=== PATIENT | female | born 1965 | race Two or more races ===

== ENCOUNTER 2016-09-30 22:24 | Emergency (ER) | payer OTHER ==
[2016-09-30 22:31] VITALS: BP 157/110; PULSE 122; TEMP 98.5; BMI 24.1
--- NOTE | 2016-09-30 23:47 | PDOC ---
History of Present Illness - General History Source: Patient Exam Limitations: No Limitations - History of Present Illness Initial Comments: 09/30/16 23:54 The patient is a 51 year old female with a pertinent PMH of HTN who presents to the ED syncopal episode while in the bathroom having a bowel movement. The patient states she hadnt been feeling well today. She complains of back pain and believes she may have hurt her back in the fall despite her chronic back pain.The patient is unsure of taking her medications today. The patient reports she hasnt eaten today. The patient denies recent travel. Denies: fever, chills, nausea, vomiting, diarrhea, shortness of breath and chest pain Allergies: Penicillins PCP: Dr. Prudence Perry <Pearl Sheldon - Last Filed: 10/01/16 03:04> - General History Source: Patient <JadonRogelio william - Last Filed: 10/01/16 03:27> - General Chief Complaint: Syncope/Near Syncope Stated Complaint: WEAKNESS Time Seen by Provider: 09/30/16 23:40 Past History <Pearl Sheldon - Last Filed: 10/01/16 03:04> - Past Medical History HTN: Yes Other medical history: migraine, memory loss - Psycho/Social/Smoking Cessation Hx Suicidal Ideation: No Smoking Status: Yes Smoking History: Never smoked Years of Tobacco Use: 20 Number of Cigarettes Smoked Daily: 0 Information on smoking cessation initiated: No Hx Alcohol Use: No Drug/Substance Use Hx: No <Rogelio Hand - Last Filed: 10/01/16 03:27> - Past Medical History Allergies/Adverse Reactions: Allergies Allergy/AdvReac Type Severity Reaction Status Date / Time Penicillins Allergy Intermediate Rash Verified 09/30/16 22:27 Home Medications: Ambulatory Orders Propranolol HCl [Inderal] 40 mg PO ONCE 09/30/16 Review of Systems - Review of Systems Able to Perform ROS?: Yes Comments:: 09/30/16 23:54 CONSTITUTIONAL: +Generalized weakness. Absent: fever, no chills EYES: Absent: visual changes ENT: Absent: ear pain, no sore throat CARDIOVASCULAR: +Syncope. Absent: chest pain, no palpitations RESPIRATORY: Absent: cough, no SOB GI: Absent: abdominal pain, no nausea, no vomiting, no constipation, no diarrhea GENITOURINARY: Absent: dysuria, no frequency, no hematuria MUSKULOSKELETAL: +Back pain. Absent: no arthralgia, no myalgia SKIN: Absent: rash NEURO: Absent: headache <Pearl Sheldon - Last Filed: 10/01/16 03:04> *Physical Exam - Vital Signs Last Vital Signs Temp Pulse Resp BP Pulse Ox 98.5 F 122 H 14 157/110 99 09/30/16 22:28 09/30/16 22:28 09/30/16 22:28 09/30/16 22:28 09/30/16 22:28 - Physical Exam Comments: 09/30/16 23:55 GENERAL: Well-appearing, well-nourished. mild distress. HEENT: Normocephalic, atraumatic. PERRL, EOM intact. CARDIOVASCULAR: Normal S1, S2. Regular rate and rhythm. PULMONARY: Clear to auscultation bilaterally. ABDOMEN: Soft, non-distended, non-tender. MUSCULOSKELETAL: Bilateral paraspinal tenderness. EXTREMITIES: Normal ROM in all four extremities. No gross deformities. SKIN: Warm, dry. No rash NEUROLOGICAL: No focal neurological deficits. <Pearl Sheldon - Last Filed: 10/01/16 03:04> - Vital Signs Last Vital Signs Temp Pulse Resp BP Pulse Ox 98.5 F 122 H 14 157/110 99 09/30/16 22:28 09/30/16 22:28 09/30/16 22:28 09/30/16 22:28 09/30/16 22:28 <Rogelio Hand - Last Filed: 10/01/16 03:27> ED Treatment Course - LABORATORY CBC & Chemistry Diagram: 10/01/16 00:53 10/01/16 00:53 - RADIOLOGY Radiograph Interpretation: 10/01/16 03:04 EXAM: CT brain without contrast Reviewed by imaging environmental sustainability manager FINDINGS: Normal brain. No acute intracranial abnormality. No bleed. No visible infarct or mass. Osseous structures are intact <Pearl Sheldon - Last Filed: 10/01/16 03:04> - LABORATORY CBC & Chemistry Diagram: 10/01/16 00:53 10/01/16 02:10 <Rogelio Hand - Last Filed: 10/01/16 03:27> Medical Decision Making - Medical Decision Making 10/01/16 03:15 Dr. Hand: The scribe's documentation has been prepared under my direction and personally reviewed by me in its entirery. I confirm that the note above accurately reflects all work, treatment, procedures, and medical decision making performed by me. <Rogelio Hand - Last Filed: 10/01/16 03:27> *DC/Admit/Observation/Transfer - Attestations Scribe Attestion: 09/30/16 23:55 Documentation prepared by Pearl Sheldon, acting as medical customer service representative for Rogelio Hand MD/DO. <Pearl Sheldon - Last Filed: 10/01/16 03:04> - Discharge Dispostion Admit: No <Rogelio Hand - Last Filed: 10/01/16 03:27> Diagnosis at time of Disposition: Fainting Qualifiers: Encounter type: initial encounter - Discharge Dispostion Disposition: HOME Condition at time of disposition: Stable - Referrals Referrals: Prudence Perry MD [Primary Care Provider] - - Patient Instructions Printed Discharge Instructions: DI for Syncope in Adults (Fainting) Additional Instructions: please follow up with her primary care physician if her symptoms continue.
[2016-09-30] MEDS ORDERED: SODIUM CHLORIDE 1,000 ML IV STA (23:48)
[2016-10-01 01:30] LABS: URINE APPEARANCE CLEAR; URINE BILIRUBIN NEGATIVE (NEGATIVE); URINE BLOOD NEGATIVE (NEGATIVE); URINE COLOR LTYELLOW; URINE GLUCOSE (UA) NEGATIVE (NEGATIVE); URINE KETONE NEGATIVE (NEGATIVE); URINE NITRITE NEGATIVE (NEGATIVE); URINE PROTEIN NEGATIVE (NEGATIVE); URINE UROBILINOGEN NEGATIVE E.U./dl (0.2-1.0)
[2016-10-01 01:33] LABS: URINE LEUK ESTERASE TRACE (NEGATIVE)
[2016-10-01 01:34] LABS: URINE BACTERIA RARE /hpf (NONE SEEN); URINE HYALINE CAST 1 /lpf; URINE MUCUS RARE; URINE RBC 2 /hpf (0-3); URINE WBC 3 /hpf (3-5)
[2016-10-01 01:39] LABS: BASOPHIL 0.6 % (0-2.0); EOSINOPHIL 0.9 % (0-4.5); MCH 30.3 pg (25.7-33.7); MCHC 32.5 g/dl (32.0-36.0); MEAN CELL VOLUME 93.4 fl (80-96); MEAN PLT VOLUME 7.7 fl (7.5-11.1); NEUTROPHILS 63.5 % (42.8-82.8); PLATELET COUNT 452 K/MM3 (134-434); RDW 12.3 % (11.6-15.6); WHITE BLOOD COUNT 12.1 K/mm3 (4.0-10.0)
[2016-10-01 01:53] LABS: INR 1.14 (0.82-1.09); PROTHROMBIN TIME (PATIENT) 12.6 SEC (9.98-11.88)
[2016-10-01 03:03] LABS: ALBUMIN 3.4 g/dl (3.4-5.0); ANION GAP 6 (8-16); BILIRUBIN,TOTAL 0.4 mg/dL (0.2-1.0); CO2 33 mmol/L (21-32); CREATININE 0.7 mg/dL (0.55-1.02); GLUCOSE,RANDOM 99 mg/dL (74-106); SGOT/AST 12 U/L (15-37); SGPT/ALT 15 U/L (12-78); TOT PROT 6.8 g/dl (6.4-8.2)
[2016-10-01 03:05] LABS: ALK PHOS 77 U/L (45-117); TROPONIN I < 0.02 ng/ml (0.00-0.05)
--- NOTE | 2016-10-02 10:29 | EKG ---
Test Reason : Blood Pressure : / mmHG Vent. Rate : 101 BPM Atrial Rate : 101 BPM P-R Int : 194 ms QRS Dur : 074 ms QT Int : 348 ms P-R-T Axes : 070 -03 040 degrees QTc Int : 451 ms POOR DATA QUALITY, INTERPRETATION MAY BE ADVERSELY AFFECTED SINUS TACHYCARDIA SEPTAL INFARCT (CITED ON OR BEFORE 23-DEC-2011) ABNORMAL ECG WHEN COMPARED WITH ECG OF 23-DEC-2011 15:39, NO SIGNIFICANT CHANGE WAS FOUND Confirmed by ADDIE RAMSEY MD ([id number]) on 10/02/2016 10:28:55 AM Referred By: Confirmed By:ADDIE RAMSEY MD
== END 2016-10-01 03:32 | disposition home or self-care (01) ==
LOC: JER 22:24
PROC: 3E0337Z Introduction of Electrolytic and Water Balance Substance into Peripheral Vein, Percutaneous Approach (ICD-10-PCS; principal; 2016-09-30)
DX: R55 Syncope and collapse (principal); I10 Essential (primary) hypertension
CPT/HCPCS: 36415; 70450-TC; 71010-TC; 80053; 81003; 81015; 82550; 84484; 84703; 85025; 85610; 93005; 93010; 99283-25

== ENCOUNTER 2017-05-06 11:36 | Day surgery (SDC) | payer OTHER ==
[2017-05-05 10:44] VITALS: BMI 24.3
[2017-05-06] MEDS ORDERED: ACETAMINOPHEN/CAFFEINE/BUTALBITAL 1 TAB PO PRN (11:39)
[2017-05-06] MEDS ORDERED: PROPRANOLOL HCL 40 MG TABLET PO ONE (11:45)
--- NOTE | 2017-05-06 11:52 | OP ---
Operative Note - Note: Operative Date: 05/06/17 Pre-Operative Diagnosis: intractable urinanry incontince Operation: transvaginal urethropexy, tot, Post-Operative Diagnosis: Same as Pre-op Surgeon: Johnathan Black Anesthesia: General Drains & Tubes with Location: cardoso to lb Operative Report Dictated: Yes
[2017-05-06] MEDS ORDERED: VASOPRESSIN 20 UNITS/ML VIAL IV ONE (14:07)
[2017-05-06] MEDS ORDERED: PROPOFOL 20 ML ONE (16:19)
[2017-05-06] MEDS ORDERED: MIDAZOLAM HCL 2 MG/2 ML SINGLE DOSE VIAL ONE (16:19)
[2017-05-06] MEDS ORDERED: DEXAMETHASONE SOD PHOSPHATE 4 MG/1 ML VIAL ONE (16:40)
[2017-05-06] MEDS ORDERED: ceFAZolin SODIUM 1 GM VIAL ONE (16:40)
[2017-05-06] MEDS ORDERED: ONDANSETRON 4 MG/2 ML VIAL ONE (16:40)
[2017-05-06] MEDS ORDERED: ceFAZolin SODIUM 1 GM VIAL IVPB ONE (16:48)
[2017-05-06] MEDS ORDERED: KETOROLAC TROMETHAMINE 30 MG/1 ML VIAL ONE (16:56)
[2017-05-06] MEDS ORDERED: LIDOCAINE 1%/EPI 1:100000 (50 ML MULTI DOSE VIAL) INF ONE (16:56)
[2017-05-06] MEDS ORDERED: BACITRACIN 15 GM TUBE TOPICAL OINTMENT ONE (17:46)
[2017-05-06] MEDS ORDERED: PROMETHAZINE HCL 25 MG/1 ML VIAL IVPUSH PRN (18:11)
[2017-05-06] MEDS ORDERED: LACTATED RINGERS SOLUTION 1,000 ML IV SCH (18:15)
[2017-05-06] MEDS: HYDROmorphone HCL CARPU-JECT 2 MG/1 ML DISP.SYRIN IM PRN (21:13)
[2017-05-06] MEDS: oxyCODONE HCL 5 MG TABLET PO PRN (23:20)
[2017-05-07] MEDS: oxyCODONE HCL 5 MG TABLET PO PRN ×2 (02:57→08:05)
[2017-05-07] MEDS: ACETAMINOPHEN 325 MG TABLET (FP) PO PRN ×2 (02:58→08:05)
[2017-05-07] MEDS: HYDROmorphone HCL CARPU-JECT 2 MG/1 ML DISP.SYRIN IM PRN (04:20)
[2017-05-07] MEDS ORDERED: LEVOFLOXACIN 500 MG TABLET (FP) PO SCH (07:00)
--- NOTE | 2017-05-07 08:22 | HP ---
DATE OF ADMISSION: 05/06/2017 Patient is a 51-year-old female who underwent transvaginal taping in January 2017. Recently, she has been diagnosed with vaginal perforation, i.e. erosion of the vaginal sling. She also complains of stress urinary incontinence. She does use 2-3 pads a day. She also has a history of migraine headaches. She has history of arthralgia. She is allergic to PENICILLIN and CODEINE. She states that when she coughs or sneezes, she loses urine. She denies dysuria or frequency. She denies any urgency incontinence. She denies any past medical problems. The patient is a G2, P2, status post uterine ablation 2 years ago. She has also undergone right carpal tunnel surgery of the hand. She underwent right inguinal hernia repair, also. Her last Pap smear was last year. SOCIAL HISTORY: Patient does smoke 1 pack of cigarettes a day since the age of 15. She denies alcohol or illicit drug use. FAMILY HISTORY: There is a family history of hypertension and diabetes. PHYSICAL EXAMINATION: General: Presently, the patient is alert, oriented. Chest: Clear. Abdomen: Soft. No CVA tenderness is elicited. Pelvic: Exam revealed mild atrophic vaginitis. No evidence of cystocele or rectocele. On palpation, the transvaginal tape is palpable in the mid-urethra. Meatus appears to be adequate. The patient underwent a cystoscopy which revealed squamous metaplasia. Ureteral orifices were within normal limits with efflux of clear urine. IMPRESSION AT PRESENT: Stress urinary incontinence status post transvaginal taping which has failed. Presently, there is slight erosion of the tape. PLAN: Excision of old taping and performing a transobturator taping. This was explained fully to the patient. Possible side effects including hemorrhage, perforation, or infection were explained to the patient, and she agrees. Flores [id number]
--- NOTE | 2017-05-07 09:41 | OP ---
DATE OF OPERATION: 05/06/2017 PREOPERATIVE DIAGNOSIS: Stress urinary incontinence, vaginal sling erosion at vaginal roof. OPERATIVE PROCEDURE: Exploration of vaginal roof, removal of exposed sling and scar tissue, and placement of a second transobturator sling. SURGEON: Denis Brooks MD ANESTHESIA: General. DESCRIPTION OF PROCEDURE: Under the above-stated anesthesia, the patient was prepped and draped in the usual sterile manner. She was placed in the dorsal lithotomy position. A weighted vaginal speculum was placed on the floor of the vagina. Stay sutures were placed on the right and left labia majora. A 16-Vietnamese Felipe was left in the urethra and the bladder drained. Inspection of the roof of the vagina revealed a 1-cm area where the vaginal sling was visible. The area was infiltrated with lidocaine with epinephrine for hemostatic purposes. A midline vertical incision was made from the mid-urethra to the level of the bladder neck. This was carried down through the skin and subcutaneous tissue using both blunt and sharp dissection. The entire sling that was in the vaginal area and surrounding tissue was removed. The scar tissue was also removed with sharp dissection. Palpation of the area revealed no other tissue. Therefore, the endopelvic fascia was palpated on the right and left sides of the vesicourethral angle. Transobturator needles were placed via the obturator canal and brought out the ipsilateral side of the urethrovesical angle. The Coloplast tape was grasped and brought out the ipsilateral side of the obturator canal. The tape was placed below the urethra in a non-tension fashion. The base of the tape was cut at the level of the skin. The wound was irrigated. The incision in the vagina was closed with running 3-0 Vicryl suture ligatures. Cystoscopy was performed and this revealed no invasion by the needle and/or tape. The ureteral orifices were within normal limits, with efflux of clear urine. No lesions or calculi were seen. The Felipe was then reinserted. The vaginal vault was irrigated with antibiotic solution. Then the area was packed with 1-inch Iodoform soaked in Betadine. The Felipe was connected to a leg bag. The stab incisions were closed with girma. The patient tolerated the procedure well. She returned to the recovery room in good condition. DENIS BROOKS M.D. [id number]
[2017-05-07 11:23] VITALS: BP 129/81; PULSE 65; TEMP 97.8
--- NOTE | 2017-05-10 16:05 | PATH ---
Surgical Pathology Report Patient Name: PRAMOD RUIZ [facility]. Rec. #: [id number] /Age/Gender: 1965 (Age: 51) / F Account: [id number] Location: [facility] SURGICAL Taken: 05/06/2017 Received: 05/09/2017 Reported: 05/10/2017 Physicians: Johnathan Black M.D. Specimen(s) Received MESH AND SCAR TISSUE Clinical History Stress female incontinence Final Diagnosis MESH AND SCAR TISSUE, EXCISION: SKIN WITH DERMAL SCAR. MESH (GROSS EXAM). Electronically Signed Mick Edgar M.D. Gross Description Received in formalin labeled "mesh and scar tissue" are 2 hart, irregular portions of mesh material measuring 1.6 x 1.0 x 0.1 cm and 1.8 x 1.0 x 0.1 cm. Also received within the same container is a 2.0 x 1.0 x 0.8 cm hart, irregular, unoriented portion of soft tissue. The soft tissue is serially sectioned and abrasives sales representative sections are submitted in one cassette. 05/09/2017 [facility]05/09/2017
== END 2017-05-07 11:18 | disposition home or self-care (01) ==
LOC: JASU-SURG 11:36 → J6S 20:21 → JASU-SURG 05-07 11:18
PROVIDERS: ATTEND Urology
PROC: 0TSC0ZZ Reposition Bladder Neck, Open Approach (ICD-10-PCS; principal; 2017-05-06 12:30)
DX: N39.3 Stress incontinence (female) (male) (principal); T83.711A Erosion of implanted vaginal mesh to surrounding organ or tissue, initial encounter; Y83.8 Other surgical procedures as the cause of abnormal reaction of the patient, or of later complication, without mention of misadventure at the time of the procedure; Y92.9 Unspecified place or not applicable
CPT/HCPCS: 84703; 88304-TC; 94760

== ENCOUNTER 2018-11-24 17:07 | Emergency (ER) | payer OTHER ==
--- NOTE | 2018-11-24 17:13 | PDOC ---
Rapid Medical Evaluation Time Seen by Provider: 11/24/18 17:12 Medical Evaluation: Allergies Allergy/AdvReac Type Severity Reaction Status Date / Time Penicillins Allergy Intermediate Rash Verified 05/06/17 14:27 codeine Allergy "ITCHING" Verified 05/06/17 14:27 11/24/18 17:12 I have performed a brief in-person evaluation of this patient. The patient presents with a chief complaint of:L ear FB Pertinent physical exam findings:deffered to FT I have ordered the following:nothing The patient will proceed to the ED for further evaluation. Discharge Disposition - Diagnosis Foreign body in ear - Referrals - Patient Instructions - Post Discharge Activity
[2018-11-24 17:16] VITALS: BP 122/82; PULSE 106; TEMP 98.2; BMI 18.1
--- NOTE | 2018-11-24 18:02 | PDOC ---
History of Present Illness - General Chief Complaint: Ear Problem Stated Complaint: FOREIGN BODY STUCK IN LF EAR Time Seen by Provider: 11/24/18 17:12 History Source: Patient Exam Limitations: No Limitations - History of Present Illness Initial Comments: 11/24/18 18:26 Patient is a 53-year-old female who presents to the ER today for foreign body sensation in her left ear. Patient states she saw her primary care doctor yesterday who told her she had something stuck in her ear. The primary care doctor did not say what was stuck in the ear. She presents for evaluation to have her the foreign body removed. Denies fevers, chills, dizziness, lightheadedness, vertigo symptoms, change in hearing. Past History - Travel Traveled outside of the country in the last 30 days: No Close contact w/someone who was outside of country & ill: No - Past Medical History Allergies/Adverse Reactions: Allergies Allergy/AdvReac Type Severity Reaction Status Date / Time Penicillins Allergy Intermediate Rash Verified 11/24/18 17:14 codeine Allergy "ITCHING" Verified 11/24/18 17:14 Home Medications: Ambulatory Orders Ibuprofen 600 mg PO Q6H #30 tablet 11/24/18 Ofloxacin Otic [Floxin Otic -] 10 drop OT DAILY #70 drops 11/24/18 COPD: No CHF: No HTN: Yes - Surgical History Orthopedic Surgery: Yes (CTR RIGHT) - Immunization History Immunization Up to Date: Yes - Suicide/Smoking/Psychosocial Hx Smoking Status: Yes Smoking History: Current every day smoker Years of Tobacco Use: 20 Have you smoked in the past 12 months: Yes Number of Cigarettes Smoked Daily: 3 Information on smoking cessation initiated: No 'Breaking Loose' booklet given: 05/06/17 Hx Alcohol Use: No Drug/Substance Use Hx: No Substance Use Type: Alcohol Review of Systems - Review of Systems Able to Perform ROS?: Yes Comments:: 11/24/18 18:24 CONSTITUTIONAL: Absent: fever, chills, diaphoresis, generalized weakness, malaise, loss of appetite HEENT: Present: L ear pain Absent: rhinorrhea, nasal congestion, throat pain, throat swelling, difficulty swallowing, mouth swelling, eye pain, visual Changes SKIN: Absent: rash, itching, pallor NEUROLOGIC: Absent: headache, focal weakness or paresthesias, dizziness, unsteady gait, seizure, mental status changes, bladder or bowel incontinence PSYCHIATRIC: Absent: anxiety, depression, suicidal or homicidal ideation, hallucinations. Is the patient limited Croatian proficient: No *Physical Exam - Vital Signs Last Vital Signs Temp Pulse Resp BP Pulse Ox 98.2 F 106 H 16 122/82 98 11/24/18 17:14 11/24/18 17:14 11/24/18 17:14 11/24/18 17:14 11/24/18 17:14 - Physical Exam Comments: 11/24/18 18:24 GENERAL: The patient is awake, alert, and fully oriented, in no acute distress. HEAD: Normal with no signs of trauma. EYES: Pupils equal, round and reactive to light, extraocular movements intact, sclera anicteric, conjunctiva clear. EARS: Left ear canal is mildly edematous, no discharge noted. No foreign body noted. TM is pearly chaudhari in color, retracted with good cone of light. Right ear canal appears normal. TM is pearly chaudhari in color with good cone of light. EXTREMITIES: Normal range of motion, no edema. NEUROLOGICAL: Normal speech, normal gait PSYCH: Normal mood, normal affect. SKIN: Warm, Dry, normal turgor, no rashes or lesions noted. Moderate Sedation - Procedure Monitoring Vital Signs: Procedure Monitoring Vital Signs Temperature 98.2 F 11/24/18 17:14 Pulse Rate 106 H 11/24/18 17:14 Respiratory Rate 16 11/24/18 17:14 Blood Pressure 122/82 11/24/18 17:14 O2 Sat by Pulse Oximetry (%) 98 11/24/18 17:14 Medical Decision Making - Medical Decision Making 11/24/18 19:27 Patient is a 53-year-old female who presents to the ER for evaluation of a possible left ear foreign body. On exam ear canal is mildly edematous however no foreign bodies seen at this time. Tenderness to palpation of the tragus and pinna. Possible otitis externa. We'll refer her to ENT for further evaluation. We'll treat for otitis externa. Discharge home I discussed the physical exam findings, ancillary test results and final diagnoses with the patient. I answered all of the patient's questions. The patient was satisfied with the care received and felt comfortable with the discharge plan and treatment plan. The Patient agrees to follow up with the primary care physician/specialist within 24-72 hours. Return precautions were given. *DC/Admit/Observation/Transfer Diagnosis at time of Disposition: Ear pain, left - Discharge Dispostion Disposition: HOME Condition at time of disposition: Stable Decision to Admit order: No - Prescriptions Prescriptions: Ibuprofen 600 mg PO Q6H #30 tablet Ofloxacin Otic [Floxin Otic -] 10 drop OT DAILY #70 drops - Referrals Referrals: Oneil Duenas MD [Staff Physician] - - Patient Instructions Printed Discharge Instructions: DI for Ear Pain-Adult Additional Instructions: We checked your ears today We did not see a foreign object in your ear Use the ear drops as directed Follow up with ENT. A referral was provided. If they do not take your insurance please call your insurance for a doctor Return to the ED for any new or worsening symptoms - Post Discharge Activity
== END 2018-11-24 18:09 | disposition home or self-care (01) ==
LOC: JERFT 17:07
DX: H92.02 Otalgia, left ear (principal); I10 Essential (primary) hypertension; F17.210 Nicotine dependence, cigarettes, uncomplicated
CPT/HCPCS: 99281-25

== ENCOUNTER 2020-03-27 18:18 | Inpatient (IN) | payer OTHER ==
--- NOTE | 2020-03-27 18:30 | PDOC ---
History of Present Illness - General Chief Complaint: Rectal Bleed Stated Complaint: LOWER BACK PAIN/BLOOD IN STOOL Time Seen by Provider: 03/27/20 18:30 History Source: Patient - History of Present Illness Initial Comments: 54 YOF h/o abdominal hernia, urinary incontinence, vaginal prolapse, and lumbar spondylosis s/p hernia repair and urethral sling surgery presents with lower back pain and rectal bleeding. Patient reports that two weeks prior to arrival she pulled a muscle in her back while opening a window. Since this time she has had lower back pain as well as pain in her right buttocks and numbness and tingling in her right thigh. She has been taking tylenol, ibuprofen and naproxen with little relief. One day prior to arrival she visited her primary care provider who gave her toradol IM as well as a prescription for Ibuprofen 800 mgs. This afternoon she had a BM that was significant for bright red blood coating her stool as well as bright red blood on her toilet tissue. She additionally endorses some new feeling of pressure while producing stools. She denies N/V/D, fever or chills. 03/27/20 20:25 Past History - Travel History Traveled outside of the country in the last 30 days: No Close contact w/someone who was outside of country & ill: No - Medical History Allergies/Adverse Reactions: Allergies Allergy/AdvReac Type Severity Reaction Status Date / Time Penicillins Allergy Intermediate Rash Verified 03/27/20 18:25 codeine Allergy "ITCHING" Verified 03/27/20 18:25 Home Medications: Ambulatory Orders Acetaminophen [Tylenol .Extra-Strength -] 1,000 mg PO Q6H PRN tablet 03/29/20 Cyclobenzaprine HCl [Flexeril -] 5 mg PO TID PRN #12 tablet 03/29/20 Duloxetine HCl [Cymbalta -] 30 mg PO DAILY #30 capsule. 03/29/20 Lidocaine Patch Removal [Lidoderm Patch Removal] 1 each MC DAILY@2200 #5 each 03/29/20 Pantoprazole Sodium [Protonix -] 40 mg PO ACBK #30 tablet.ec 03/29/20 Anemia: No Asthma: No Cancer: No Cardiac Disorders: No Hx Myocardial Infarction: No CVA: No COPD: No CHF: No HTN: Yes - Surgical History Orthopedic Surgery: Yes (CTR RIGHT) - Immunization History Immunization Up to Date: Yes - Psycho-Social/Smoking History Smoking Status: Yes Smoking History: Current every day smoker Years of Tobacco Use: 20 Have you smoked in the past 12 months: Yes Number of Cigarettes Smoked Daily: 3 Information on smoking cessation initiated: No 'Breaking Loose' booklet given: 05/06/17 - Substance Abuse Hx (Audit-C & DAST Scrn) How often the patient has a drink containing alcohol: Never Score: In Men: 4 or > Positive; In Women: 3 or > Positive: 0 Screen Result (Pos requires Nsg. Audit-10AR): Negative Review of Systems - Review of Systems Able to Perform ROS?: Yes Constitutional: No: Chills, Diaphoresis, Fever, Loss of Appetite, Night Sweats, Weakness HEENTM: No: Symptoms Reported, See HPI, Eye Pain, Blurred Vision, Tearing, Recent change in vision, Double Vision, Cataracts, Ear Pain, Ocular Prothesis, Ear Discharge, Nose Pain, Nose Congestion, Tinnitus, Nose Bleeding, Hearing Loss, Throat Pain, Throat Swelling, Mouth Pain, Dental Problems, Difficulty Swallowing, Mouth Swelling, Other Respiratory: No: Symptoms reported, See HPI, Cough, Orthopnea, Shortness of Breath, SOB with Exertion, SOB at Rest, Stridor, Wheezing, Productive cough, Hemoptysis, Other Cardiac (ROS): No: Symptoms Reported, See HPI, Chest Pain, Edema, Irregular Hear t Rate, Lightheadedness, Palpitations, Syncope, Chest Tightness, Other ABD/GI: Yes: Abd. Pain w/ defecation, Blood Streaked Bowels, Rectal Bleeding : Yes: Incontinence Musculoskeletal: Yes: Back Pain Integumentary: No: Symptoms Reported, See HPI, Bruising, Change in Color, Change in Hair/Nails, Dryness, Erythema, Flushing, Lesions, Lumps, Pallor, Pruritus, Rash, Sweating, Other Neurological: Yes: Numbness, Tingling Psychiatric: No: Anxiety, Depression, Frequent Crying, Stressors, Sleep Pattern Change, Emotional Problems, Mood Swings, Change in Appetite, Other Endocrine: No: Symptoms Reported, See HPI, Excessive Sweating, Flushing, Intolerance to Cold, Intolerance to Heat, Increased Hunger, Increased Thirst, Increased Urine, Unexplained Weight Gain, Unexplained Weight Loss, Change in Weight, Other Hematologic/Lymphatic: No: Symptoms Reported, See HPI, Anemia, Blood Clots, Easy Bleeding, Easy Bruising, Bleeding Diathesis, Lymph Node Abnormalities, Swollen Glands, Other *Physical Exam - Vital Signs Last Vital Signs Temp Pulse Resp BP Pulse Ox 98.6 F 101 H 18 159/106 H 99 03/27/20 18:22 03/27/20 18:22 03/27/20 18:22 03/27/20 18:22 03/27/20 18:22 - Physical Exam General Appearance: Yes: Nourished, Appropriately Dressed, Mild Distress HEENT: negative: EOMI, MARGARET, Normal ENT Inspection, Normal Voice, Symmetrical, TMs Normal, Pharynx Normal, Pale Conjunctivae, Photophobia, Scleral Icterus (R), Scleral Icterus (L), Muffled/Hoarse voice, Pharyngeal Erythema, Tonsillar Exudate, Tonsillar Erythema, Nasal Congestion, Rhinorrhea, Sinus Tenderness, Orbits, Hearing Decreased, Hearing Grossly Normal, TM Bulging, TM Dull, TM Erythema, Lesions, Vera, Excessive drooling, Thrush, Other Neck: negative: Tender, Trachea midline, Normal Thyroid, Rigid, Supple, Carotid bruit, Decreased range of motion, Stridor, Lymphadenopathy (R), Lymphadenopathy (L), Rigidity, Tender lateral, Tender midline, Thyromegaly, Other Respiratory/Chest: positive: Lungs Clear, Normal Breath Sounds Cardiovascular: positive: Regular Rhythm, Regular Rate, S1, S2 Gastrointestinal/Abdominal: positive: Normal Bowel Sounds, Tender, Soft, Tenderness Rectal Exam: positive: heme negative stool, normal exam Musculoskeletal: positive: Other (paraspinal tenderness) ED Treatment Course - LABORATORY CBC & Chemistry Diagram: 03/29/20 08:50 03/28/20 05:35 Medical Decision Making - Medical Decision Making 54 YOF h/o spondylosis, abdominal hernia, vaginal prolapse, urinary incontinence s/p hernia repair and vaginal sling presents with lower back pain of 2 weeks duration following strenuous activity and one day of rectal bleeding in the context of NSAID use. Denies numbness, tingling, weakness, or incontinence of stool. Denies CP, SOB, N/V/D. Denies anal/ rectal pain. Vital stable. Physical exam reveals some abdominal tenderness in lower right quadrant as well as paraspinal tenderness. No numbness or weakness on exam. DTRs 2+ bilaterally. Differential for back pain includes muscular strain, compression fracture, and disc herniation. Differential for rectal bleeding includes bleeding d/t NSAID use, diverticulosis, AVM, and hemorrhoids. Will do CBC, CMP, PT/INR, Type and screen, hemocult, rectal exam, and CT abdomen. Will give 1g tylenol and lidocaine patch for pain. Reassess: Labs were wnl, hemocult negative, rectal exam unrevealing of gross blood, hemorrhoids, excoriations or other etiology. CT showed no evidence of diverticulosis, mass, or other gross defect. Pain is likely d/t muscular strain. In the absence of neurological changes and point tenderness of the vertebra, compression fracture and disc herniation less likely. Given CT findings and normal rectal exam GI bleed is likely 2/2 to NSAID use. Dispo: Given intractable pain plan is to admit patient for observation and further management 03/28/20 16:40 Discharge - Discharge Information Problems reviewed: Yes Clinical Impression/Diagnosis: Back ache Condition: Improved Disposition: HOME - Follow up/Referral - Patient Discharge Instructions - Post Discharge Activity
--- NOTE | 2020-03-27 19:57 | PDOC ---
Attending Attestation - Resident Resident Name: Shun Brennan - ED Attending Attestation I have performed the following: I have examined & evaluated the patient, The case was reviewed & discussed with the resident, I agree w/resident's findings & plan, Exceptions are as noted Discharge - Follow up/Referral Referrals: Sim Powell [Primary Care Provider] - - Patient Discharge Instructions - Post Discharge Activity
[2020-03-27] MEDS ORDERED: LIDOCAINE 5% TOPICAL PATCH TP ONE (20:07)
[2020-03-27] MEDS ORDERED: ACETAMINOPHEN 1000 MG/100 ML VIAL (NON FORMULARY) IVPB ONE (20:07)
[2020-03-27 20:20] LABS: BASO % 0.3 % (0-2.0); EOS % 1.1 % (0-4.5); HEMATOCRIT 38.6 % (32.4-45.2); HEMOGLOBIN 13.1 GM/dL (10.7-15.3); LYMPH % 39.3 % (8-40); MEAN PLT VOLUME 8.4 fl (7.5-11.1); MONO % 9.8 % (3.8-10.2); NEUT % 49.5 % (42.8-82.8); PLATELET COUNT 398 K/MM3 (134-434); RDW 13.4 % (11.6-15.6); WHITE BLOOD COUNT 9.3 K/mm3 (4.0-10.0)
[2020-03-27 20:27] LABS: INR 1.05 (0.83-1.09); PROTHROMBIN TIME (PATIENT) 12.4 SEC (9.7-13.0)
[2020-03-27] MEDS ORDERED: LIDOCAINE 5% TOPICAL PATCH ONE (20:28)
[2020-03-27] MEDS ORDERED: ACETAMINOPHEN INJECTION 100 ML IVPB ONE (20:28)
[2020-03-27 20:59] LABS: ALBUMIN 4.1 g/dl (3.4-5.0); BILIRUBIN,TOTAL 0.3 mg/dL (0.2-1); BLOOD UREA NITROGEN 21.2 mg/dL (7-18); CALCIUM 9.5 mg/dL (8.5-10.1); CREATININE 0.8 mg/dL (0.55-1.3); POTASSIUM 3.9 mmol/L (3.5-5.1); TOT PROT 7.7 g/dl (6.4-8.2)
--- NOTE | 2020-03-27 21:22 | PDOC ---
Documentation entered by Leslie Denney SCRIBE, acting as scribe for Aguila Hampton MD. Aguila Hampton MD: This documentation has been prepared by the Олег reid Lincy, SCRIBE, under my direction and personally reviewed by me in its entirety. I confirm that the documentation accurately reflects all work, treatment, procedures, and medical decision making performed by me. Attending Attestation - Resident Resident Name: Shun Brennan - ED Attending Attestation I have performed the following: I have examined & evaluated the patient, The case was reviewed & discussed with the resident, I agree w/resident's findings & plan, Exceptions are as noted - HPI HPI: 03/27/20 21:13 The patient is a 54-year-old female with a past medical history significant for abdominal hernia, urinary incontinence, vaginal prolapse, s/p hernia repair, and urethral sling surgery and lumbar spondylosis who presents to the emergency department with bright red blood per rectum and lower back pain. The patient reports about 2 weeks ago she injured her back while opening a window, since then shes been having lower back pain, mild relief noted with Tylenol, Ibuprofen, and naproxen. The patient reports following up with PCP, who pr escribed the patient Tramadol and Ibuprofen. The patient reports earlier today she noticed bright red blood in the stool and in the toilet. Denies fever or chills. - Physicial Exam PE: 03/28/20 03:24 Agree with documented exam - Medical Decision Making 03/28/20 03:24 Acute worsening of chronic R sided pain, new episode of BRBPR in context of aggressive NSAID use for px control f/u labs, cxr, ekg, ct a/p Analgesia, avoid nsaid re-eval labs unremarkable ct no acute pathology no improvement with ofirmev no improvement with lidcaine patch trial morphine re-eval likely admit for analgesia and further evaluation of intractable pain Discharge - Discharge Information Problems reviewed: Yes Clinical Impression/Diagnosis: Back ache Condition: Improved Disposition: HOME - Follow up/Referral - Patient Discharge Instructions - Post Discharge Activity
[2020-03-27] MEDS ORDERED: LIDOCAINE PATCH REMOVAL MC SCH (22:00)
[2020-03-27] MEDS ORDERED: morphine CARPU-JECT 4 MG/1 ML DISP.SYRIN IVPUSH ONE (23:10)
[2020-03-27] MEDS ORDERED: morphine SULFATE 4 MG/ML VIAL ONE (23:12)
--- NOTE | 2020-03-28 00:29 | PN ---
Teaching Attending Note Name of Resident: Nesha Cruz ATTENDING PHYSICIAN STATEMENT I saw and evaluated the patient. I reviewed the resident's note and discussed the case with the resident. I agree with the resident's findings and plan as documented. SUBJECTIVE: Patient is a 54 year old woman with PMH of Penicillin allergy, Abdominal hernia, Tobacco use, Urinary incontinence, Vaginal prolapse, Lumbar spondylosis, Hernia repair and Urethral sling surgery presents with lower back pain and rectal bleeding. Patient reports that two weeks prior to arrival she pulled a muscle in her back while opening a window. Since then she has had lower back pain as well as pain in her right buttocks and numbness and tingling in her right thigh. She has been taking tylenol, ibuprofen and naproxen with little relief. One day prior to arrival she visited her primary care provider who gave her Toradol IM as well as a prescription for Ibuprofen 800 mg. This afternoon she had a BM that was significant for bright red blood coating her stool as well as bright red blood on her toilet tissue. Reports few episodes of rectal bleeding in August 2019. Has urinary incontinence. She denies nausea, vomiting, diarrhea, fever or chills. Denies alcohol, tobacco or illicit drug use. No sick contacts or recent travels. Family history is unremarkable. OBJECTIVE: Alert Vital Signs Period Temp Pulse Resp BP Sys/Greco Pulse Ox Last 24 Hr 98.6 F 78-101 18-18 159-172/105-106 98-99 HEENT: No Jaundice, eye redness or discharge, PERRLA, EOMI. Normocephalic, atraumatic. External ears are normal and hearing is grossly intact. No nasal discharge. Neck: Supple, nontender. No palpable adenopathy or thyromegaly. No JVD Chest: Good effort. Clear to auscultation and percussion. Heart: Regular. No S3, rub or murmur Abdomen: Not distended, soft, nontender and no HSM. No rebound or guarding. Normal bowel sounds. Ext: Peripheral pulses intact. No leg edema. Skin: Warm and dry. No petechiae, rash or ecchymosis. Neuro: Alert. Oriented x3. CN 2-12 grossly intact. Negative straight leg raising test. Sensation grossly intact in all four extremities and DTR are symmetric. Psych: Appropriate mood and affect. Good insight. Home Medications Medication Instructions Recorded Ibuprofen 800 mg PO BID 03/27/20 Naproxen [Naprosyn -] 375 mg PO BID 03/27/20 Abnormal Lab Results 03/27/20 19:15 Anion Gap 5 L BUN 21.2 H Current Medications Generic Name Dose Route Start Last Admin Trade Name Ramsey PRN Reason Stop Dose Admin Miscellaneous 1 each 03/28/20 08:00 Lidoderm Patch Removal MC 03/28/20 08:01 ONCE@0800 ONE Pantoprazole Sodium 40 mg 03/28/20 07:00 Protonix - PO ACBK [facility] ASSESSMENT AND PLAN: 1. Intractable back pain/Rectal bleeding - CT scan of abdomen/pelvis with IV contrast didnot show any acute abnormality and stool guaiac was negative. Will get lumbosacral MRI, use warm compress, continue Lidocaine patch, PO Tylenol, Flexeril, avoid NSAIDS and consult PT and Neurology. Counseled patient to avoid bending and to squat. Rectal bleeding likely due to NSAIDS. Will keep her NPO, monitor hematocrit q 6 hours, treat with IV Protonix, stool softner and consult GI. Viral testing for COVID-19 ordered and patient placed on airborne, droplet and contact isolation. Hypertension may be due to stress - will monitor closely to rule out undiagnosed hypertension. EKG pending. Will continue comprehensive care for all of patients comorbid conditions. 2. DVT prophylaxis - SCD 3. Advance directives - Full code
[2020-03-28] MEDS ORDERED: CYCLOBENZAPRINE HCL 5 MG TABLET PO ONE (03:15)
[2020-03-28 06:12] LABS: HEMATOCRIT 37.4 % (32.4-45.2); HEMOGLOBIN 12.4 GM/dL (10.7-15.3); MCH 31.1 pg (25.7-33.7); MCHC 33.2 g/dl (32.0-36.0); MEAN CELL VOLUME 93.8 fl (80-96); MEAN PLT VOLUME 7.9 fl (7.5-11.1); PLATELET COUNT 358 K/MM3 (134-434); RBC 3.99 M/mm3 (3.60-5.2)
[2020-03-28 06:17] LABS: ALBUMIN 3.6 g/dl (3.4-5.0); BILIRUBIN,TOTAL 0.4 mg/dL (0.2-1); BLOOD UREA NITROGEN 14.9 mg/dL (7-18); CALCIUM 9.1 mg/dL (8.5-10.1); CREATININE 0.6 mg/dL (0.55-1.3); PHOSPHOROUS 4.1 mg/dL (2.5-4.9); POTASSIUM 3.6 mmol/L (3.5-5.1); TOT PROT 6.8 g/dl (6.4-8.2)
--- NOTE | 2020-03-28 06:51 | HP ---
CHIEF COMPLAINT: GI bleed yesterday PCP: HISTORY OF PRESENT ILLNESS: This is a 54 year old female with PMH of bladder+vaginal prolapse s/p 2x urethral sling procedures, and GI bleed. She presented to the ER with complaints of bright red bleeding per rectum several hours before presenting to the ER. She states that she noticed the blood in the toilet bowl and also after she wiped. The blood was bright, mixed with the stool, not associated with any pain during defecation, approximately 1 cups worth. She has not had a colonoscopy in the past, and she has no history of hemorrhoids. She experienced a similar event in August 2019, as well as a few times in the past, although she states that she only had a few drops of blood at the time. After the last incident in August, she was scheduled for a colonoscopy in September 2019, which was delayed due to the pandemic. She also endorses back pain for the past 3 weeks. She states that the pain began when she was attempting to open a window in her home. The pain began suddenly, felt in her lower back in the paraspinal lumbar region, constant in nature, rated 10/10 in intensity, sharp as well as dull in nature (alternating), alleviated partially by NSAIDS. SHe has been taking Naproxen at home, and received a dose of Toradol IM at her PCP's office a day before presentation. She denies any fevers, chills, SBO, chest pain, nausea, vomiting, diarrhea. ER course was notable for: (1) CT AP normal (2) FOBT (-) (3) Ofiramev 1g Recent Travel: denies PAST MEDICAL HISTORY: Not on any medication at home PAST SURGICAL HISTORY: bladder+vaginal prolapse s/p 2x urethral sling procedures in 2017 Social History: Smokin-2 cigarettes per day, smoked 1ppd for several years in the past Alcohol: drinks a few glasses of wine per week Drugs: denies Allergies Penicillins Allergy (Intermediate, Verified 03/27/20 18:25) Rash codeine Allergy (Verified 03/27/20 18:25) "ITCHING" HOME MEDICATIONS: Home Medications Medication Instructions Recorded Ibuprofen 800 mg PO BID 03/27/20 Naproxen [Naprosyn -] 375 mg PO BID 03/27/20 REVIEW OF SYSTEMS CONSTITUTIONAL: Absent: fever, chills, diaphoresis, generalized weakness, malaise, loss of appetite, weight change HEENT: Absent: rhinorrhea, nasal congestion, throat pain, throat swelling, difficulty swallowing, mouth swelling, ear pain, eye pain, visual changes CARDIOVASCULAR: Absent: chest pain, syncope, palpitations, irregular heart rate, lightheadedness, peripheral edema RESPIRATORY: Absent: cough, shortness of breath, dyspnea with exertion, orthopnea, wheezing, stridor, hemoptysis GASTROINTESTINAL: Absent: abdominal pain, abdominal distension, nausea, vomiting, diarrhea, constipation, melena, hematochezia GENITOURINARY: Absent: dysuria, frequency, urgency, hesitancy, hematuria, flank pain, genital pain MUSCULOSKELETAL: back pain Absent: myalgia, arthralgia, joint swelling, back pain, neck pain SKIN: Absent: rash, itching, pallor HEMATOLOGIC/IMMUNOLOGIC: Absent: easy bleeding, easy bruising, lymphadenopathy, frequent infections ENDOCRINE: Absent: unexplained weight gain, unexplained weight loss, heat intolerance, cold intolerance NEUROLOGIC: Absent: headache, focal weakness or paresthesias, dizziness, unsteady gait, seizure, mental status changes, bladder or bowel incontinence PSYCHIATRIC: Absent: anxiety, depression, suicidal or homicidal ideation, hallucinations. PHYSICAL EXAMINATION Vital Signs - 24 hr 03/27/20 03/27/20 03/27/20 18:22 23:24 23:26 Temperature 98.6 F Pulse Rate 101 H Pulse Rate [ 78 Left Radial] Respiratory 18 18 18 Rate Blood Pressure 159/106 H Blood Pressure 172/105 H [Left Arm] O2 Sat by Pulse 99 98 98 Oximetry (%) 03/28/20 03/28/20 03:00 05:28 Temperature 97.5 F L Pulse Rate Pulse Rate [ 80 74 Left Radial] Respiratory 18 Rate Blood Pressure Blood Pressure 109/74 134/85 [Left Arm] O2 Sat by Pulse 100 98 Oximetry (%) GENERAL: Awake, alert, and fully oriented, in no acute distress. HEAD: Normal with no signs of trauma. EYES: Pupils equal, round and reactive to light, extraocular movements intact, sclera anicteric, conjunctiva clear. No lid lag. EARS, NOSE, THROAT: Ears normal, nares patent, oropharynx clear without exudates. Moist mucous membranes. NECK: Normal range of motion, supple without lymphadenopathy, JVD, or masses. LUNGS: Breath sounds equal, clear to auscultation bilaterally. No wheezes, and no crackles. No accessory muscle use. HEART: Regular rate and rhythm, normal S1 and S2 without murmur, rub or gallop. ABDOMEN: Soft, nontender, not distended, rectal exam shows no external deformities, normal anal tone, empty vault, no stool or blood noted on finger MUSCULOSKELETAL: Paraspinal tenderness in lumbar region R>L, tenderness over upper aspect of R gluteal region UPPER EXTREMITIES: 2+ pulses, warm, well-perfused. No cyanosis. No clubbing. No peripheral edema. LOWER EXTREMITIES: 2+ pulses, warm, SLR test negative NEUROLOGICAL: Cranial nerves II-XII intact. Normal speech. Normal gait. PSYCHIATRIC: Cooperative. Good eye contact. Appropriate mood and affect. SKIN: Warm, dry, normal turgor, no rashes or lesions noted, normal capillary refill. Laboratory Results - last 24 hr 03/27/20 03/27/20 03/27/20 19:15 19:15 19:15 WBC 9.3 RBC 4.10 Hgb 13.1 Hct 38.6 MCV 94.0 MCH 32.0 MCHC 34.0 RDW 13.4 Plt Count 398 MPV 8.4 Absolute Neuts (auto) 4.6 Neutrophils % 49.5 D Lymphocytes % 39.3 D Monocytes % 9.8 Eosinophils % 1.1 Basophils % 0.3 Nucleated RBC % 0 PT with INR 12.40 INR 1.05 Sodium 142 Potassium 3.9 Chloride 107 Carbon Dioxide 30 Anion Gap 5 L BUN 21.2 H Creatinine 0.8 Est GFR (CKD-EPI)AfAm 98.24 Est GFR (CKD-EPI)NonAf 84.76 Random Glucose 91 Calcium 9.5 Phosphorus Magnesium Total Bilirubin 0.3 AST 17 ALT 21 Alkaline Phosphatase 107 Total Protein 7.7 Albumin 4.1 Stool Occult Blood Blood Type Antibody Screen 03/27/20 03/27/20 03/28/20 19:15 19:15 05:35 WBC RBC Hgb Hct MCV MCH MCHC RDW Plt Count MPV Absolute Neuts (auto) Neutrophils % Lymphocytes % Monocytes % Eosinophils % Basophils % Nucleated RBC % PT with INR INR Sodium 141 Potassium 3.6 Chloride 108 H Carbon Dioxide 25 Anion Gap 8 BUN 14.9 Creatinine 0.6 Est GFR (CKD-EPI)AfAm 121.46 Est GFR (CKD-EPI)NonAf 104.80 Random Glucose Calcium 9.1 Phosphorus 4.1 Magnesium 2.0 Total Bilirubin 0.4 AST 13 L ALT 19 Alkaline Phosphatase 100 Total Protein 6.8 Albumin 3.6 Stool Occult Blood Negative Blood Type O POSITIVE Antibody Screen Negative ASSESSMENT/PLAN: This is a 54 year old female with PMH of bladder+vaginal prolapse s/p 2x urethral sling procedures, and GI bleed. She presented to the ER with complaints of bright red bleeding per rectum several hours before presenting to the ER. She has a history of NSAID use for back pain that began 3 weeks ago. #GI Bleed - Likely 2/2 NSAID use - H/H normal, 12.4/37.4, will trend - FOBT negative - GI consult placed for possible colonoscopy - Protonix 40mg daily - NPO for now - Will hold prophylaxis AC #Back Pain - Likely musculoskeletal in nature due to sudden onset after physical activity, symptoms of MSK pain, no neurological symptoms (motor/sensory compromise), symptoms of bowel incontinence related to prolapse not back pain since symptoms pre-date acute event that led to back pain - Will still order MRI to r/o neurological causes - Neuro consult placed for back pain with MSK vs neuro etiology - Educate patient to continue activity as tolerated and avoid bed rest, attempt back exercises - Patient given Morphine in ER with minimal effect, will give Cyclobenzaprine 5mg, patient reluctant to start so given one dose, if beneficial may start scheduled - Lidocaine patches topical - Warm compress - Avoid NSAIDS #HTN - Likely 2/2 pain, pt states she has regular PCP f/u and has always had normal BP - On later readings (3AM BP was down to 109/74) - WIll continue to monitor and recommend OP F/U #FEN - NPO #Prophylaxis - On Protonix and SCDs - Holding AC for now due to GI bleed #Dispo - Will monitor in M/S for now, F/U MRI and neuro consult, will attempt to manage back pain Visit type - Emergency Visit Emergency Visit: Yes ED Registration Date: 03/28/20 Care time: The patient presented to the Emergency Department on the above date and was hospitalized for further evaluation of their emergent condition. - New Patient This patient is new to me today: Yes Date on this admission: 03/31/20 - Critical Care Critical Care patient: No ATTENDING PHYSICIAN STATEMENT I saw and evaluated the patient. I reviewed the resident's note and discussed the case with the resident. I agree with the resident's findings and plan as documented. SUBJECTIVE: OBJECTIVE: ASSESSMENT AND PLAN:
[2020-03-28] MEDS ORDERED: PANTOPRAZOLE 40 MG TABLET ONE (07:34)
[2020-03-28] MEDS: PANTOPRAZOLE 40 MG TABLET PO SCH (07:39)
[2020-03-28] MEDS ORDERED: LIDOCAINE PATCH REMOVAL MC ONE (08:00)
--- NOTE | 2020-03-28 10:40 | EKG ---
Test Reason : Blood Pressure : / mmHG Vent. Rate : 060 BPM Atrial Rate : 060 BPM P-R Int : 194 ms QRS Dur : 080 ms QT Int : 422 ms P-R-T Axes : 047 -17 031 degrees QTc Int : 422 ms NORMAL SINUS RHYTHM POSSIBLE LEFT ATRIAL ENLARGEMENT LOW VOLTAGE QRS CANNOT RULE OUT ANTERIOR INFARCT (CITED ON OR BEFORE 23-DEC-2011) ABNORMAL ECG WHEN COMPARED WITH ECG OF 01-OCT-2016 01:39, VENT. RATE HAS DECREASED BY 41 BPM Confirmed by CHARLOTTE ALVARADO MD ([id number]) on 03/28/2020 10:39:46 AM Referred By: Confirmed By:CHARLOTTE ALVARADO MD
[2020-03-28] MEDS ORDERED: CYCLOBENZAPRINE HCL 10 MG TABLET (FP) PO PRN (11:17)
[2020-03-28] MEDS ORDERED: CYCLOBENZAPRINE HCL 10 MG TABLET (FP) ONE (11:31)
[2020-03-28] MEDS ORDERED: ACETAMINOPHEN 500 MG TABLET (FP) ONE (11:31)
[2020-03-28] MEDS: ACETAMINOPHEN 500 MG TABLET (FP) PO PRN ×2 (11:40→17:51)
--- NOTE | 2020-03-28 11:59 | CONSULT ---
Consult - text type - Consultation Consultation Note: Neurology CHIEF COMPLAINT: GI bleed, LBP HISTORY OF PRESENT ILLNESS: This is a 54 year old female with PMH of bladder+vaginal prolapse s/p 2x urethral sling procedures, and GI bleed. She presented to the ER with complaints of bright red bleeding per rectum several hours before presenting to the ER. She noticed the blood in the toilet bowl and also after she wiped. The blood was bright, mixed with the stool, not associated with any pain during defecation, approximately 1 cups worth. She was admitted for further eval. Additionally, she also endorsed back pain Which she reports Occurring chronically. She states that the pain began when she was attempting to open a window in her home 3 weeks ago. The pain began suddenly, felt in her right lower back in the paraspinal lumbar region, alleviated partially by NSAIDS. SHe has been taking Naproxen at home, and received a dose of Toradol IM at her PCP's office a day before presentation without much relief. There was tenderness to palpation in the lumbosacral region on the right, has been put on cyclobenzaprine but finds that this medication only makes her sleepy and therefore we discussed trial of baclofen 10 mg up to three times a day instead and she was in agreement. May benefit from pain management evaluation. MRI L spine ordered, awaiting completion/report. Recent Travel: denies PAST MEDICAL HISTORY: Not on any medication at home PAST SURGICAL HISTORY: bladder+vaginal prolapse s/p 2x urethral sling procedures in 2017 Social History: Smokin-2 cigarettes per day, smoked 1ppd for several years in the past Alcohol: drinks a few glasses of wine per week Drugs: denies Family: HTN Allergies Penicillins Allergy (Intermediate, Verified 03/27/20 18:25) Rash codeine Allergy (Verified 03/27/20 18:25) "ITCHING" HOME MEDICATIONS: Home Medications Medication Instructions Recorded Ibuprofen 800 mg PO BID 03/27/20 Naproxen [Naprosyn -] 375 mg PO BID 03/27/20 REVIEW OF SYSTEMS CONSTITUTIONAL: Absent: fever, chills, diaphoresis, generalized weakness, malaise, loss of appetite, weight change HEENT: Absent: rhinorrhea, nasal congestion, throat pain, throat swelling, difficulty swallowing, mouth swelling, ear pain, eye pain, visual changes CARDIOVASCULAR: Absent: chest pain, syncope, palpitations, irregular heart rate, lightheadedness, peripheral edema RESPIRATORY: Absent: cough, shortness of breath, dyspnea with exertion, orthopnea, wheezing, stridor, hemoptysis GASTROINTESTINAL: Absent: abdominal pain, abdominal distension, nausea, vomiting, diarrhea, constipation, melena, hematochezia GENITOURINARY: Absent: dysuria, frequency, urgency, hesitancy, hematuria, flank pain, genital pain MUSCULOSKELETAL: back pain Absent: myalgia, arthralgia, joint swelling, back pain, neck pain SKIN: Absent: rash, itching, pallor HEMATOLOGIC/IMMUNOLOGIC: Absent: easy bleeding, easy bruising, lymphadenopathy, frequent infections ENDOCRINE: Absent: unexplained weight gain, unexplained weight loss, heat intolerance, cold intolerance NEUROLOGIC: Absent: headache, focal weakness or paresthesias, dizziness, unsteady gait, seizure, mental status changes, bladder or bowel incontinence PSYCHIATRIC: Absent: anxiety, depression, suicidal or homicidal ideation, hallucinations. PHYSICAL EXAMINATION Vital Signs Period Temp Pulse Resp BP Sys/Greco Pulse Ox Last 24 Hr 97.5 F-98.6 F 62-101 16-18 109-172/74-106 98-100 GENERAL: Awake, alert, and fully oriented, in no acute distress. HEAD: Normal with no signs of trauma. EYES: Pupils equal, round and reactive to light, extraocular movements intact, sclera anicteric, conjunctiva clear. No lid lag. EARS, NOSE, THROAT: Ears normal, nares patent, oropharynx clear without exudates. Moist mucous membranes. NECK: Normal range of motion, supple without lymphadenopathy, JVD, or masses. LUNGS: Breath sounds equal, clear to auscultation bilaterally. No wheezes, and no crackles. No accessory muscle use. HEART: Regular rate and rhythm, normal S1 and S2 without murmur, rub or gallop. ABDOMEN: Soft, nontender, not distended, rectal exam shows no external deformities, normal anal tone, empty vault, no stool or blood noted on finger MUSCULOSKELETAL: Paraspinal tenderness in lumbar region R>L, tenderness over upper aspect of R gluteal region UPPER EXTREMITIES: 2+ pulses, warm, well-perfused. No cyanosis. No clubbing. No peripheral edema. LOWER EXTREMITIES: 2+ pulses, warm, SLR test negative NEUROLOGICAL: Cranial nerves II-XII intact. Normal speech. Antalgic gait, favoring the right, strength grossly intact, limited by pain in LE PSYCHIATRIC: Cooperative. Good eye contact. Appropriate mood and affect. SKIN: Warm, dry, normal turgor, no rashes or lesions noted, normal capillary refill. Laboratory Results - last 24 hr 03/27/20 03/27/20 03/27/20 19:15 19:15 19:15 WBC 9.3 RBC 4.10 Hgb 13.1 Hct 38.6 MCV 94.0 MCH 32.0 MCHC 34.0 RDW 13.4 Plt Count 398 MPV 8.4 Absolute Neuts (auto) 4.6 Neutrophils % 49.5 D Lymphocytes % 39.3 D Monocytes % 9.8 Eosinophils % 1.1 Basophils % 0.3 Nucleated RBC % 0 PT with INR 12.40 INR 1.05 Sodium 142 Potassium 3.9 Chloride 107 Carbon Dioxide 30 Anion Gap 5 L BUN 21.2 H Creatinine 0.8 Est GFR (CKD-EPI)AfAm 98.24 Est GFR (CKD-EPI)NonAf 84.76 Random Glucose 91 Calcium 9.5 Phosphorus Magnesium Total Bilirubin 0.3 AST 17 ALT 21 Alkaline Phosphatase 107 Total Protein 7.7 Albumin 4.1 Stool Occult Blood Blood Type Antibody Screen 03/27/20 03/27/20 03/28/20 19:15 19:15 05:35 WBC RBC Hgb Hct MCV MCH MCHC RDW Plt Count MPV Absolute Neuts (auto) Neutrophils % Lymphocytes % Monocytes % Eosinophils % Basophils % Nucleated RBC % PT with INR INR Sodium 141 Potassium 3.6 Chloride 108 H Carbon Dioxide 25 Anion Gap 8 BUN 14.9 Creatinine 0.6 Est GFR (CKD-EPI)AfAm 121.46 Est GFR (CKD-EPI)NonAf 104.80 Random Glucose Calcium 9.1 Phosphorus 4.1 Magnesium 2.0 Total Bilirubin 0.4 AST 13 L ALT 19 Alkaline Phosphatase 100 Total Protein 6.8 Albumin 3.6 Stool Occult Blood Negative Blood Type O POSITIVE Antibody Screen Negative ASSESSMENT/PLAN: This is a 54 year old female with PMH of bladder+vaginal prolapse s/p 2x urethral sling procedures, and GI bleed, being worked up. Additionally, she also endorsed back pain Which she reports Occurring chronically. She states that the pain began when she was attempting to open a window in her home 3 weeks ago. The pain began suddenly, felt in her right lower back in the paraspinal lumbar region, alleviated partially by NSAIDS. SHe has been taking Naproxen at home, and received a dose of Toradol IM at her PCP's office a day before presentation without much relief. There was tenderness to palpation in the lumbosacral region on the right, has been put on cyclobenzaprine but finds that this medication only makes her sleepy and therefore we discussed trial of baclofen 10 mg up to three times a day instead and she was in agreement. May benefit from pain management evaluation. MRI L spine ordered, awaiting completion/report. Pain control as best able, physical therapy as tolerated, fall precautions, consider assistive device. Monitor Bp, maintain normotensive range.
[2020-03-28] MEDS: traMADol HCL 50 MG TABLET PO PRN ×2 (12:34→20:12)
--- NOTE | 2020-03-28 13:03 | PN ---
Progress Note, Physician Chief Complaint: GI bleed Low back pain History of Present Illness: NAD c/o low back pain Came in thru ER when she saw toilet bowl full of blood. Pt w/ hx of bladder sling, has seen asymptomatic blood in urine from time to time. This time the quantity of blood was moderate to large that prompted her to come to ER. - Current Medication List Current Medications: Active Medications Acetaminophen (Tylenol -) 1,000 mg PO Q6H PRN PRN Reason: PAIN LEVEL 1-5 Last Admin: 03/28/20 11:40 Dose: 1,000 mg Documented by: Baclofen (Lioresal -) 10 mg PO TID NATALIIA Pantoprazole Sodium (Protonix -) 40 mg PO ACBK NATALIIA Last Admin: 03/28/20 07:39 Dose: 40 mg Documented by: Tramadol HCl (Ultram -) 50 mg PO Q6H PRN PRN Reason: PAIN LEVEL 6-10 Last Admin: 03/28/20 12:34 Dose: 50 mg Documented by: - Objective Vital Signs: Vital Signs Temperature 98.0 F 03/28/20 11:47 Pulse Rate 62 03/28/20 11:47 Respiratory Rate 16 03/28/20 11:47 Blood Pressure 129/78 03/28/20 11:47 O2 Sat by Pulse Oximetry (%) 99 03/28/20 11:47 Constitutional: Yes: Well Nourished, No Distress, Calm Cardiovascular: Yes: Regular Rate and Rhythm Respiratory: Yes: Regular, CTA Bilaterally Gastrointestinal: Yes: Normal Bowel Sounds, Soft, Tenderness (supr-pubic) Genitourinary: Yes: WNL Musculoskeletal: Yes: Back Pain Extremities: Yes: WNL Edema: No Peripheral Pulses WNL: Yes Neurological: Yes: Alert, Oriented Psychiatric: Yes: Alert, Oriented Labs: CBC, BMP 03/28/20 05:35 03/28/20 05:35 INR, PTT INR 1.05 (0.83-1.09) 03/27/20 19:15 Problem List - Problems (1) Low back pain Assessment/Plan: -Acetaminophen 1g Q6H for pain 1-5 -Tramadol 50 mg po Q6H PRN for pain 6-10 -Cyclobenzaprine 5 mg po tid prn -Neurology consult -MRI L spine Problems reviewed: Yes Code(s): M54.5 - LOW BACK PAIN (2) Blood in toilet bowl Assessment/Plan: -Check UA/UC -Urology consult -Monitor for any further bleeding Problems reviewed: Yes Code(s): R58 - HEMORRHAGE, NOT ELSEWHERE CLASSIFIED (3) Rectal bleed Assessment/Plan: -Guaiac negative -H/H stable -Has not seen any more bleeding -GI consulted -Likely source Urine Problems reviewed: Yes Code(s): K62.5 - HEMORRHAGE OF ANUS AND RECTUM Assessment/Plan See problem list
[2020-03-28 13:36] LABS: EPI CELLS 3 /uL (0-25.1); HYALINE CASTS 0 /uL (0-3.1); URINE APPEARANCE CLEAR; URINE BACTERIA 76 /uL (0-1359); URINE BILIRUBIN NEGATIVE (NEGATIVE); URINE COLOR YELLOW; URINE GLUCOSE (UA) NEGATIVE (NEGATIVE); URINE KETONE NEGATIVE (NEGATIVE); URINE LEUK ESTERASE NEGATIVE (NEGATIVE); URINE NITRITE NEGATIVE (NEGATIVE); URINE PROTEIN NEGATIVE (NEGATIVE); URINE RBC 7 /uL (0-23.9); URINE UROBILINOGEN 0.2 mg/dL (0.2-1.0); URINE WBC 3 /uL (0-25.8)
--- NOTE | 2020-03-28 13:58 | CON.GU ---
Consult Consult Specialty:: urology Referred by:: Silvestre Meeks NP Reason for Consultation:: urinary incontinence and hematuria - History of Present Illness Chief Complaint: urinary incontinence and hematuria History of Present Illness: Patient is a 54 year old female who presents with lumbar pain and hematachezia. The patient has a history of urethral sling surgery x2 with continued episodes of incontinence. The incontinence appears stress in type. She denies recurrent uti's but does have persistent hematuria. UA shows no evidence of uti and the patient denies dysuria or change in urinary symptoms. - History Source History Provided By: Patient Limitations to Obtaining History: No Limitations - Alcohol/Substance Use Hx Alcohol Use: No - Smoking History Smoking history: Current every day smoker Have you smoked in the past 12 months: Yes Aproximately how many cigarettes per day: 3 Home Medications - Allergies Allergies/Adverse Reactions: Allergies Allergy/AdvReac Type Severity Reaction Status Date / Time Penicillins Allergy Intermediate Rash Verified 03/27/20 18:25 codeine Allergy "ITCHING" Verified 03/27/20 18:25 - Home Medications Home Medications: Ambulatory Orders Ibuprofen 800 mg PO BID 03/27/20 Naproxen [Naprosyn -] 375 mg PO BID 03/27/20 Physical Exam- Vital Signs: Vital Signs Temperature 98.0 F 03/28/20 11:47 Pulse Rate 62 03/28/20 11:47 Respiratory Rate 16 03/28/20 11:47 Blood Pressure 129/78 03/28/20 11:47 O2 Sat by Pulse Oximetry (%) 99 03/28/20 11:47 Labs: CBC, BMP 03/28/20 05:35 03/28/20 05:35 Imaging - Results Cat Scan: Report Reviewed Assessment/Plan imp hematachezia urinary incontinence s/p urethral sling x2 hematuria plan will schedule cystoscpy as outpatient
[2020-03-28 14:37] VITALS: BMI 26.6
--- NOTE | 2020-03-28 14:58 | CON.GI ---
Consult Consult Specialty:: GI Referred by:: Medicine Reason for Consultation:: Rectal bleed - History of Present Illness Chief Complaint: One episode of blood in toilet History of Present Illness: Called to ember 54 yo female with PMHx of urinary incontinence, vaginal prolapse with transvaginal urethropexy, lumbar spondylosis and GI bleed, presents to [facility] ED c/o 1 episode of BRBPR which occurred earlier in the day. First noticed blood on the toilet paper then looked in the bowl and noticed bright red blood mixed with formed stool. Patient has h/o constipation but denies straining or any pain with defecation. Tried to quantify amount ~ 1 cup worth. Patient informs me that she also has bladder sling and sometimes she has blood come out of her urethra. Patient had ABD CT scan which shows sigmoid diverticulosis. Additionally, she also endorsed back pain (chronic dating back to 2016). Reports that ~2 weeks ago she believes she pulled a muscle in her back while attempting to open a window. C/o continued LBP with radiculopathy (radiates into right buttock). Neurology was consulted and report reviewed. She tried to alleviate pain by taking Tylenol, Ibuprofen & Naproxen with minimal relief. States she went and saw her PCP one day before coming to ED 2/2 LBP -- provider administered Toradol IM and gave her script for Ibuprofen 800mg. Later that afternoon she had a BM as described above which landed her in our ER. Patient states she is followed by Dr. Hearn as out-patient as is scheduled for colonoscopy soon. She denies N/V/D, fever or chills. Denies malaise. Denies further episodes of BRBP, melena/hematochazia. - History Source History Provided By: Patient, Medical Record Limitations to Obtaining History: No Limitations - Past Medical History Gastrointestinal: Yes: Constipation, Diverticulosis, GI Bleed. No: Crohn's Disease, Hemorrhoids, Inflamatory Bowel Disease, Irritable Bowel Disease, Ulcerative Colitis Renal/: Yes: Hematuria. No: UTI Heme/Onc: Yes: Anemia Psych: Yes: Addictions Musculoskeletal: Yes: Chronic low back pain - Past Surgical History Past Surgical History: Yes: Hernia Repair Additional Surgical History: Transvaginal urethropexy 04/2017 (Dr. Black) - Alcohol/Substance Use Hx Alcohol Use: No History of Substance Use: reports: None - Smoking History Smoking history: Current every day smoker Have you smoked in the past 12 months: Yes Aproximately how many cigarettes per day: 2 - Social History ADL: Independent History of Recent Travel: No <Vicente Kingston - Last Filed: 03/28/20 15:38> Home Medications <Vicente Kingston - Last Filed: 03/28/20 15:38> <Pearl Ruiz - Last Filed: 03/30/20 08:04> - Allergies Allergies/Adverse Reactions: Allergies Allergy/AdvReac Type Severity Reaction Status Date / Time Penicillins Allergy Intermediate Rash Verified 03/27/20 18:25 codeine Allergy "ITCHING" Verified 03/27/20 18:25 - Home Medications Home Medications: Ambulatory Orders Acetaminophen [Tylenol .Extra-Strength -] 1,000 mg PO Q6H PRN tablet 03/29/20 Cyclobenzaprine HCl [Flexeril -] 5 mg PO TID PRN #12 tablet 03/29/20 Duloxetine HCl [Cymbalta -] 30 mg PO DAILY #30 capsule. 03/29/20 Lidocaine Patch Removal [Lidoderm Patch Removal] 1 each MC DAILY@2200 #5 each 03/29/20 Pantoprazole Sodium [Protonix -] 40 mg PO ACBK #30 tablet.ec 03/29/20 Review of Systems - Review of Systems Constitutional: reports: No Symptoms Eyes: reports: No Symptoms HENT: reports: No Symptoms Neck: reports: No Symptoms Cardiovascular: reports: No Symptoms Respiratory: reports: No Symptoms Gastrointestinal: reports: No Symptoms Genitourinary: reports: No Symptoms Musculoskeletal: reports: Back Pain (lumbar region (chronic dating back to 2017)) Integumentary: reports: No Symptoms Neurological: reports: No Symptoms Endocrine: reports: No Symptoms Hematology/Lymphatic: reports: No Symptoms Psychiatric: reports: No Symptoms <Vicente Kingston - Last Filed: 03/28/20 15:38> Physical Exam-GI Vital Signs: Vital Signs Temperature 98.5 F 03/28/20 14:23 Pulse Rate 64 03/28/20 14:23 Respiratory Rate 18 03/28/20 14:23 Blood Pressure 147/91 03/28/20 14:23 O2 Sat by Pulse Oximetry (%) 99 03/28/20 11:47 Constitutional: Yes: Well Nourished, No Distress, Calm Eyes: Yes: WNL, Conjunctiva Clear, EOM Intact HENT: Yes: WNL, Atraumatic, Normocephalic Neck: Yes: WNL, Supple, Trachea Midline Cardiovascular: Yes: WNL, Regular Rate and Rhythm Respiratory: Yes: CTA Bilaterally Gastrointestinal Inspection: Yes: WNL ...Auscultate: Yes: Normoactive Bowel Sounds ...Palpate: Yes: Soft. No: Firm/Rigid, Guarding, Pulsatile Mass, Tenderness ...Rectal Exam: Yes: WNL, Guaiac Negative. No: Hemorrhoids/External Genitourinary: No: Hematuria, Incontinence, Vaginal Bleeding Musculoskeletal: Yes: Back Pain Extremities: Yes: WNL Edema: No Peripheral Pulses WNL: Yes Integumentary: Yes: WNL Neurological: Yes: WNL, Alert, Oriented, Cran Nerves II-XII Intact ...Motor Strength: WNL Psychiatric: Yes: WNL, Alert, Oriented Labs: CBC, [facility] 03/28/20 05:35 03/28/20 05:35 INR, PTT INR 1.05 (0.83-1.09) 03/27/20 19:15 <Vicente Kingston P - Last Filed: 03/28/20 15:38> Vital Signs: Vital Signs Temperature 97.7 F 03/29/20 10:00 Pulse Rate 68 03/29/20 10:00 Respiratory Rate 18 03/29/20 10:00 Blood Pressure 131/84 03/29/20 10:00 O2 Sat by Pulse Oximetry (%) 97 03/29/20 09:00 Labs: CBC, [facility] 03/29/20 08:50 03/28/20 05:35 INR, PTT INR 1.05 (0.83-1.09) 03/27/20 19:15 <Pearl Ruiz - Last Filed: 03/30/20 08:04> Problem List - Problems (1) Low back pain Code(s): M54.5 - LOW BACK PAIN (2) Rectal bleed Code(s): K62.5 - HEMORRHAGE OF ANUS AND RECTUM <Vicente Kingston P - Last Filed: 03/28/20 15:38> Assessment/Plan 54 yo female admitted with 1 episode of BRBPR and chronic LBP. She is hemodynamically stable. - Patient can f/u with Dr. Hearn as out-patient for her scheduled colonoscopy. - Patient states she wasn't aware of her diverticulosis -- ordered nutrition consult for dietary education. - No further input from GI needed. Please re-consult PRN - Pain management prn - Above plan discussed with Dr. Ruiz and agrees. <Vicente Kingston - Last Filed: 03/28/20 15:38> PATIENT WAS SEEN AND EXAMINED AGREE WITH ABOVE ASSESSMENT AND PLAN. MRS. RUIZ'S BLEEDING IS NOT OF A GI ETIOLOGY - SHE CAN F/U OUTPT FOR SCREENING COLONOSCOPY <Pearl Ruiz - Last Filed: 03/30/20 08:04>
[2020-03-28] MEDS: BACLOFEN 10 MG TABLET (FP) PO SCH ×2 (15:03→21:35)
[2020-03-29] MEDS: ACETAMINOPHEN 500 MG TABLET (FP) PO PRN (01:27)
[2020-03-29] MEDS: traMADol HCL 50 MG TABLET PO PRN ×2 (02:26→09:20)
[2020-03-29] MEDS: PANTOPRAZOLE 40 MG TABLET PO SCH (06:04)
[2020-03-29] MEDS: BACLOFEN 10 MG TABLET (FP) PO SCH (06:04)
[2020-03-29 09:50] LABS: BASO % 0.5 % (0-2.0); EOS % 1.8 % (0-4.5); HEMATOCRIT 38.4 % (32.4-45.2); HEMOGLOBIN 12.9 GM/dL (10.7-15.3); LYMPH % 51.5 % (8-40); MCH 31.2 pg (25.7-33.7); MCHC 33.6 g/dl (32.0-36.0); MEAN PLT VOLUME 8.1 fl (7.5-11.1); MONO % 7.4 % (3.8-10.2); NEUT % 38.8 % (42.8-82.8); PLATELET COUNT 364 K/MM3 (134-434); RBC 4.12 M/mm3 (3.60-5.2); RDW 13.4 % (11.6-15.6); WHITE BLOOD COUNT 7.6 K/mm3 (4.0-10.0)
--- NOTE | 2020-03-29 10:54 | DS ---
Physical Examination Vital Signs: Vital Signs Temperature 97.4 F L 03/29/20 05:40 Pulse Rate 58 L 03/29/20 05:40 Respiratory Rate 18 03/29/20 05:40 Blood Pressure 112/72 03/29/20 05:40 O2 Sat by Pulse Oximetry (%) 97 03/28/20 21:00 Cardiovascular: Yes: Regular Rate and Rhythm Respiratory: Yes: Regular, CTA Bilaterally Gastrointestinal: Yes: Normal Bowel Sounds, Soft Labs: CBC, BMP 03/29/20 08:50 03/28/20 05:35 Discharge Summary Reason For Visit: LOW BACK PAIN,RECTAL HEMORRHAGE Current Active Problems Blood in toilet bowl (Acute) Low back pain (Acute) Rectal bleed (Acute) Hospital Course: Problems (1) Low back pain Assessment/Plan: -Acetaminophen 1g Q6H for pain 1-5 -Cyclobenzaprine 5 mg po tid prn -Neurology consult -MRI L spine NOTED Problems reviewed: Yes Code(s): M54.5 - LOW BACK PAIN (2) Blood in toilet bowl Assessment/Plan: -Check UA/UC -Urology consult APPRECIATED -Monitor for any further bleeding Problems reviewed: Yes Code(s): R58 - HEMORRHAGE, NOT ELSEWHERE CLASSIFIED (3) Rectal bleed Assessment/Plan: -Guaiac negative -H/H stable -Has not seen any more bleeding -GI consulted NOTED -Likely source Urine Problems reviewed: Yes Code(s): K62.5 - HEMORRHAGE OF ANUS AND RECTUM Condition: Improved - Instructions Referrals: Ernie Hearn DO [Staff Physician] - Chandler Saenz MD [Staff Physician] - Sim Powell [Primary Care Provider] - 1 Week Disposition: HOME - Home Medications Comprehensive Discharge Medication List: Ambulatory Orders Acetaminophen [Tylenol .Extra-Strength -] 1,000 mg PO Q6H PRN tablet 03/29/20 Cyclobenzaprine HCl [Flexeril -] 5 mg PO TID PRN #12 tablet 03/29/20 Lidocaine Patch Removal [Lidoderm Patch Removal] 1 each MC DAILY@2200 #5 each 03/29/20 Pantoprazole Sodium [Protonix -] 40 mg PO ACBK #30 tablet.ec 03/29/20
[2020-03-29 11:14] VITALS: BP 131/84; PULSE 68; TEMP 97.7
--- NOTE | 2020-03-29 12:05 | PN ---
Progress Note (short form) - Note Progress Note: Neurology CHIEF COMPLAINT: GI bleed, LBP HISTORY OF PRESENT ILLNESS: This is a 54 year old female with PMH of bladder+vaginal prolapse s/p 2x urethral sling procedures, and GI bleed. She presented to the ER with complaints of bright red bleeding per rectum several hours before presenting to the ER. She noticed the blood in the toilet bowl and also after she wiped. The blood was bright, mixed with the stool, not associated with any pain during defecation, approximately 1 cups worth. She was admitted for further eval. Additionally, she also endorsed back pain which she reports occurring chronically. She states that the pain began when she was attempting to open a window in her home 3 weeks ago. The pain began suddenly, felt in her right lower back in the paraspinal lumbar region, alleviated partially by NSAIDS. She has been taking Naproxen at home, and received a dose of Toradol IM at her PCP's office a day before presentation without much relief. There was tenderness to palpation in the lumbosacral region on the right, has been put on cyclobenzaprine but finds that this medication only makes her sleepy and therefore we discussed trial of baclofen 10 mg up to three times a day instead and she Reports that she is tolerating the medication much better than Flexeril, no side effects and specifically no drowsiness. BacloFen 10mg TID can be continued. May benefit from pain management evaluation. MRI Lumbar spine completed, minimal degenerative disc disease, right side L5-S1 disc herniation with extruded disc material with mass effect on right S1 nerve root. Discussed starting on Cymbalta 30mg daily and she was in agreement. Planned for discharge today and provided information for outpatient follow up. Active Medications Acetaminophen (Tylenol -) 1,000 mg PO Q6H PRN PRN Reason: PAIN LEVEL 1-5 Last Admin: 03/29/20 01:27 Dose: 1,000 mg Documented by: Baclofen (Lioresal -) 10 mg PO TID [facility] Last Admin: 03/29/20 06:04 Dose: 10 mg Documented by: Pantoprazole Sodium (Protonix -) 40 mg PO ACBK [facility] Last Admin: 03/29/20 06:04 Dose: 40 mg Documented by: Tramadol HCl (Ultram -) 50 mg PO Q6H PRN PRN Reason: PAIN LEVEL 6-10 Last Admin: 03/29/20 09:20 Dose: 50 mg Documented by: PHYSICAL EXAMINATION Vital Signs Period Temp Pulse Resp BP Sys/Greco Pulse Ox Last 24 Hr 97.4 F-98.6 F 58-76 18-18 108-147/68-91 97-97 GENERAL: Awake, alert, and fully oriented, in no acute distress. HEAD: Normal with no signs of trauma. EYES: Pupils equal, round and reactive to light, extraocular movements intact, sclera anicteric, conjunctiva clear. No lid lag. EARS, NOSE, THROAT: Ears normal, nares patent, oropharynx clear without exudates. Moist mucous membranes. NECK: Normal range of motion, supple without lymphadenopathy, JVD, or masses. LUNGS: Breath sounds equal, clear to auscultation bilaterally. No wheezes, and no crackles. No accessory muscle use. HEART: Regular rate and rhythm, normal S1 and S2 without murmur, rub or gallop. ABDOMEN: Soft, nontender, not distended, rectal exam shows no external deformities, normal anal tone, empty vault, no stool or blood noted on finger MUSCULOSKELETAL: Paraspinal tenderness in lumbar region R>L, tenderness over upper aspect of R gluteal region UPPER EXTREMITIES: 2+ pulses, warm, well-perfused. No cyanosis. No clubbing. No peripheral edema. LOWER EXTREMITIES: 2+ pulses, warm, SLR test negative NEUROLOGICAL: Cranial nerves II-XII intact. Normal speech. Antalgic gait, favoring the right, strength grossly intact, limited by pain in LE PSYCHIATRIC: Cooperative. Good eye contact. Appropriate mood and affect. SKIN: Warm, dry, normal turgor, no rashes or lesions noted, normal capillary refill. CBCD WBC 7.6 K/mm3 (4.0-10.0) 03/29/20 08:50 RBC 4.12 M/mm3 (3.60-5.2) 03/29/20 08:50 Hgb 12.9 GM/dL (10.7-15.3) 03/29/20 08:50 Hct 38.4 % (32.4-45.2) 03/29/20 08:50 MCV 93.0 fl (80-96) 03/29/20 08:50 MCHC 33.6 g/dl (32.0-36.0) 03/29/20 08:50 RDW 13.4 % (11.6-15.6) 03/29/20 08:50 Plt Count 364 K/MM3 (134-434) 03/29/20 08:50 MPV 8.1 fl (7.5-11.1) 03/29/20 08:50 CMP Sodium 141 mmol/L (136-145) 03/28/20 05:35 Potassium 3.6 mmol/L (3.5-5.1) 03/28/20 05:35 Chloride 108 mmol/L (98-107) H 03/28/20 05:35 Carbon Dioxide 25 mmol/L (21-32) 03/28/20 05:35 Anion Gap 8 MMOL/L (8-16) 03/28/20 05:35 BUN 14.9 mg/dL (7-18) 03/28/20 05:35 Creatinine 0.6 mg/dL (0.55-1.3) 03/28/20 05:35 Random Glucose 92 mg/dL (74-106) 03/28/20 05:35 Calcium 9.1 mg/dL (8.5-10.1) 03/28/20 05:35 Total Bilirubin 0.4 mg/dL (0.2-1) 03/28/20 05:35 AST 13 U/L (15-37) L 03/28/20 05:35 ALT 19 U/L (13-61) 03/28/20 05:35 Alkaline Phosphatase 100 U/L (45-117) 03/28/20 05:35 Total Protein 6.8 g/dl (6.4-8.2) 03/28/20 05:35 Albumin 3.6 g/dl (3.4-5.0) 03/28/20 05:35 ASSESSMENT/PLAN: This is a 54 year old female with PMH of bladder+vaginal prolapse s/p 2x urethral sling procedures, and GI bleed, being worked up. Additionally, she also endorsed back pain Which she reports Occurring chronically. She states that the pain began when she was attempting to open a window in her home 3 weeks ago. The pain began suddenly, felt in her right lower back in the paraspinal lumbar region, alleviated partially by NSAIDS. SHe has been taking Naproxen at home, and received a dose of Toradol IM at her PCP's office a day before presentation without much relief. There was tenderness to palpation in the lumbosacral region on the right, has been put on cyclobenzaprine but finds that this medication only makes her sleepy and therefore we discussed trial of baclofen 10 mg up to three times a day instead and she Reports that she is tolerating the medication much better than Flexeril, no side effects and specifically no drowsiness. BacloFen 10mg TID can be continued. May benefit from pain management evaluation. MRI Lumbar spine completed, minimal degenerative disc disease, right side L5-S1 disc herniation with extruded disc material with mass effect on right S1 nerve root. Discussed starting on Cymbalta 30mg daily and she was in agreement. Planned for discharge today and provided information for outpatient follow up. Pain control as best able, physical therapy as tolerated, fall precautions, consider assistive device. Monitor Bp, maintain normotensive range.
[2020-03-29] MEDS ORDERED: DULoxetine HCL 30 MG CAPSULE.DR PO SCH (13:00)
== END 2020-03-29 13:58 | disposition home or self-care (01) | DRG 253 ==
LOC: JER 18:18 → JERBED 03-28 01:08 → J5S 03-28 12:10
PROVIDERS: ADMIT Internal Medicine; ATTEND Family Medicine
DX: K62.5 Hemorrhage of anus and rectum (principal); I10 Essential (primary) hypertension; K46.9 Unspecified abdominal hernia without obstruction or gangrene; R32 Unspecified urinary incontinence; M47.896 Other spondylosis, lumbar region; T39.395A Adverse effect of other nonsteroidal anti-inflammatory drugs [NSAID], initial encounter; M51.06 Intervertebral disc disorders with myelopathy, lumbar region; M54.5 Low back pain; R31.9 Hematuria, unspecified; K59.09 Other constipation; K57.90 Diverticulosis of intestine, part unspecified, without perforation or abscess without bleeding; D64.9 Anemia, unspecified; M51.37 Other intervertebral disc degeneration, lumbosacral region; F17.210 Nicotine dependence, cigarettes, uncomplicated; Z88.0 Allergy status to penicillin; Z79.1 Long term (current) use of non-steroidal anti-inflammatories (NSAID)
CPT/HCPCS: 36415; 72148-TC; 74177-TC; 80053; 81003; 82272; 83735; 84100; 85025; 85027; 85610; 86850; 86900; 86901; 87086; 93005; 93010; 99285-25; J0131; J0475; Q9967; U0003

== ENCOUNTER 2020-05-20 05:06 | Day surgery (SDC) | payer OTHER ==
[2020-05-15 15:35] VITALS: BMI 27.1
[2020-05-20] MEDS ORDERED: EPINEPHrine 1:10,000 (P-F SYR) 1 MG/10 ML DISP.SYRIN IVPUSH ONE (09:00)
[2020-05-20 09:25] VITALS: TEMP 96.8
[2020-05-20] MEDS ORDERED: EPINEPHrine 1:10,000 (P-F SYR) 1 MG/10 ML DISP.SYRIN ONE (09:35)
[2020-05-20] MEDS ORDERED: ACETAMINOPHEN 500 MG TABLET (FP) PO ONE (10:51)
[2020-05-20] MEDS ORDERED: ACETAMINOPHEN 500 MG TABLET (FP) ONE (10:52)
[2020-05-20 11:31] VITALS: BP 134/90; PULSE 80
--- NOTE | 2020-05-22 12:37 | PN ---
Progress Note (short form) - Note Progress Note: Had d/w Ms. Goodrich today re: pathology findings. Called by Dr. Barrera. Polyp was a TVA with focal HGD. 1.9cm Margin free of polyp changes. Patient will f/u in a couple of months to discuss follow-up plan
--- NOTE | 2020-05-22 13:05 | PATH ---
Surgical Pathology Report Patient Name: PRAMOD RUIZ [facility]. Rec. #: [id number] /Age/Gender: 1965 (Age: 54) / F Account: [id number] Location: U-ENDOSCOPY Taken: 05/20/2020 Received: 05/20/2020 Reported: 05/22/2020 Physicians: Juan M Hearn D.O. Specimen(s) Received POLYP SIGMOID Clinical History Rectal bleeding Postoperative diagnosis: Large polyp, hemorrhoids Final Diagnosis SIGMOID COLON POLYP, POLYPECTOMY: TUBULOVILLOUS ADENOMA WITH FOCAL HIGH GRADE DYSPLASIA. RESECTION MARGIN IS NEGATIVE FOR HIGH GRADE DYSPLASIA; HIGH GRADE DYSPLASIA IS 1.9CM AWAY FROM THE MARGIN. Intradepartmental case reviewed with concordance on diagnosis. This case was discussed with Dr. Hearn on 05/22/2020. Electronically Signed Junaid Barrera M.D. Gross Description Received in formalin labeled "biopsy sigmoid polyp," is a 2.4 x 1.9 x 0.9 cm hart, polypoid portion of soft tissue. The base is inked purple and the specimen is trisected and entirely submitted in 3 cassettes. DL/05/20/2020 saudi/05/20/2020
== END 2020-05-20 11:27 | disposition home or self-care (01) ==
LOC: JASU-ENDO 05:06
PROVIDERS: ATTEND Internal Medicine Gastroenterology
PROC: 3E0H8GC Introduction of Other Therapeutic Substance into Lower GI, Via Natural or Artificial Opening Endoscopic (ICD-10-PCS; 2020-05-20)
PROC: 0DBN8ZX Excision of Sigmoid Colon, Via Natural or Artificial Opening Endoscopic, Diagnostic (ICD-10-PCS; principal; 2020-05-20 09:00)
DX: Z12.11 Encounter for screening for malignant neoplasm of colon (principal); D12.5 Benign neoplasm of sigmoid colon; K64.8 Other hemorrhoids
CPT/HCPCS: 88305-TC

== ENCOUNTER 2022-01-11 04:09 | Day surgery (SDC) | payer OTHER ==
[2022-01-07 09:44] VITALS: BMI 26.4
[2022-01-11] MEDS ORDERED: ONABOTULINUMTOXINA 200 UNIT/VIAL VIAL IM ONE (09:15)
[2022-01-11] MEDS ORDERED: MIDAZOLAM HCL 2 MG/2 ML SINGLE DOSE VIAL ONE (10:58)
[2022-01-11] MEDS ORDERED: ACETAMINOPHEN INJECTION 100 ML IVPB ONE (11:05)
[2022-01-11] MEDS ORDERED: PROPOFOL 20 ML ONE ×2 (11:05→11:22)
[2022-01-11] MEDS ORDERED: CLINDAMYCIN 900 MG PREMIX BAG IVPB ONE (11:15)
[2022-01-11] MEDS ORDERED: IOHEXOL 300 MG/ML INFUS..BTL IV ONE ×2 (11:27)
[2022-01-11] MEDS ORDERED: HYDROmorphone HCL CARPU-JECT 2 MG/1 ML DISP.SYRIN IM ONE (11:54)
[2022-01-11] MEDS ORDERED: ONDANSETRON 4 MG/2 ML VIAL IVPUSH PRN (12:40)
[2022-01-11] MEDS ORDERED: oxyCODONE HCL 5 MG TABLET PO PRN (12:40)
[2022-01-11] MEDS ORDERED: LACTATED RINGERS SOLUTION 1,000 ML IV SCH (12:45)
[2022-01-11] MEDS ORDERED: traMADol HCL 50 MG TABLET ONE (13:33)
[2022-01-11] MEDS ORDERED: traMADol HCL 50 MG TABLET PO ONE (13:45)
[2022-01-11 17:52] VITALS: BP 142/88
[2022-01-11 17:57] VITALS: PULSE 70; TEMP 97.8
== END 2022-01-11 14:30 | disposition home or self-care (01) ==
LOC: JASU-SURG 04:09
PROVIDERS: ATTEND Urology
PROC: 0T748DZ Dilation of Left Kidney Pelvis with Intraluminal Device, Via Natural or Artificial Opening Endoscopic (ICD-10-PCS; 2022-01-11)
PROC: 3E0K8GC Introduction of Other Therapeutic Substance into Genitourinary Tract, Via Natural or Artificial Opening Endoscopic (ICD-10-PCS; principal; 2022-01-11 10:00)
PROC: 0T7D8DZ Dilation of Urethra with Intraluminal Device, Via Natural or Artificial Opening Endoscopic (ICD-10-PCS; 2022-01-11 10:00)
DX: N32.81 Overactive bladder (principal); N20.1 Calculus of ureter
CPT/HCPCS: 76000-TC-FY; 87086; 88108; 94760; J0585

== ENCOUNTER 2022-10-01 20:48 | Emergency (ER) | payer OTHER ==
[2022-10-01 21:10] VITALS: PULSE 97; RESP 18; TEMP 98; BMI 28.1
[2022-10-01] MEDS ORDERED: ONDANSETRON 4 MG/2 ML VIAL IVPUSH ONE (21:24)
[2022-10-01] MEDS ORDERED: KETOROLAC TROMETHAMINE 30 MG/1 ML VIAL IVPUSH ONE (21:24)
[2022-10-01] MEDS ORDERED: morphine CARPU-JECT 4 MG/1 ML DISP.SYRIN IVPUSH ONE (21:28)
[2022-10-01] MEDS ORDERED: ONDANSETRON 4 MG/2 ML VIAL ONE (21:35)
[2022-10-01] MEDS ORDERED: morphine SULFATE 4 MG/ML VIAL ONE (21:36)
[2022-10-01 22:50] LABS: HEMATOCRIT 38.1 % (32.4-45.2); HEMOGLOBIN 12.9 GM/dL (10.7-15.3); MCH 31.1 pg (25.7-33.7); MCHC 33.9 g/dl (32.0-36.0); MEAN CELL VOLUME 91.9 fl (80-96); MEAN PLT VOLUME 7.7 fl (7.5-11.1); PLATELET COUNT 402 10^3/uL (134-434); RBC 4.15 M/mm3 (3.60-5.2); RDW 13.3 % (11.6-15.6); WHITE BLOOD COUNT 9.5 K/mm3 (4.0-10.0)
[2022-10-01] MEDS ORDERED: KETOROLAC TROMETHAMINE 15 MG/ML VIAL IVPUSH ONE (23:07)
[2022-10-01 23:18] LABS: ALBUMIN 3.8 g/dl (3.4-5.0); BLOOD UREA NITROGEN 16.6 mg/dL (7-18); CALCIUM 9.2 mg/dL (8.5-10.1)
[2022-10-01 23:21] LABS: CREATININE 0.7 mg/dL (0.55-1.3); EPI CELLS 4 /uL (0-25.1); HYALINE CASTS 0 /uL (0-3.1); PH,URINE 5.5 (5.0-8.0); URINE APPEARANCE CLEAR; URINE BACTERIA 44 /uL (0-1359); URINE BILIRUBIN NEGATIVE (NEGATIVE); URINE COLOR YELLOW; URINE GLUCOSE (UA) NEGATIVE (NEGATIVE); URINE KETONE NEGATIVE (NEGATIVE); URINE LEUK ESTERASE TRACE (NEGATIVE); URINE NITRITE NEGATIVE (NEGATIVE); URINE PROTEIN NEGATIVE (NEGATIVE); URINE RBC 37 /uL (0-23.9); URINE UROBILINOGEN 0.2 mg/dL (0.2-1.0); URINE WBC 9 /uL (0-25.8)
[2022-10-01] MEDS ORDERED: FAMOTIDINE 20 MG/50 ML IVPB 20 MG/50 ML MG IVPB ONE (23:21)
[2022-10-01] MEDS ORDERED: MAG HYDROX/AL HYDROX/SIMETH 30 ML UNIT-DOSE CUP PO ONE (23:21)
[2022-10-01 23:23] LABS: BILIRUBIN,TOTAL 0.3 mg/dL (0.2-1); TOT PROT 7.3 g/dl (6.4-8.2)
[2022-10-02] MEDS ORDERED: KETOROLAC TROMETHAMINE 30 MG/1 ML VIAL ONE (01:15)
[2022-10-02 01:34] VITALS: BP 155/93
== END 2022-10-02 01:52 | disposition home or self-care (01) ==
LOC: JER 20:48
PROC: 3E033GC Introduction of Other Therapeutic Substance into Peripheral Vein, Percutaneous Approach (ICD-10-PCS; principal; 2022-10-01)
DX: R10.12 Left upper quadrant pain (principal)
CPT/HCPCS: 36415; 71046-TC-FY; 74176-TC; 80053; 81003; 83690; 84484; 84703; 85027; 85379; 93005; 93010; 99285-25

== ENCOUNTER 2024-10-18 04:32 | Day surgery (SDC) | payer OTHER ==
[2024-10-17 11:39] VITALS: BMI 26.7
[2024-10-18 08:49] VITALS: TEMP 97.9
[2024-10-18 10:52] VITALS: RESP 16
[2024-10-18 11:16] VITALS: BP 100/73; PULSE 80
== END 2024-10-18 11:52 | disposition home or self-care (01) ==
LOC: JASU-ENDO 04:32
PROVIDERS: ATTEND Internal Medicine Gastroenterology
PROC: 0DBN8ZX Excision of Sigmoid Colon, Via Natural or Artificial Opening Endoscopic, Diagnostic (ICD-10-PCS; principal; 2024-10-18 09:45)
DX: Z12.11 Encounter for screening for malignant neoplasm of colon (principal); D12.0 Benign neoplasm of cecum; K64.8 Other hemorrhoids; Z86.0100 Personal history of colon polyps, unspecified
CPT/HCPCS: 88305-TC